=== PATIENT | female | born 1950 | race Caucasian/White ===

== ENCOUNTER → 2018-04-25 | Outpatient (CLI) | payer MEDICARE, OTHER | LOC: LAB.O 08:39 | PROVIDERS: ATTEND Internal Medicine Endocrinology, Diabetes & Metabolism | DX: E11.29 Type 2 diabetes mellitus with other diabetic kidney complication (principal); E11.39 Type 2 diabetes mellitus with other diabetic ophthalmic complication; E11.49 Type 2 diabetes mellitus with other diabetic neurological complication; E11.65 Type 2 diabetes mellitus with hyperglycemia; Z79.4 Long term (current) use of insulin ==

== ENCOUNTER → 2018-07-30 | Outpatient (CLI) | payer OTHER | LOC: GMAM 15:18 | PROVIDERS: ATTEND Family Medicine | DX: R23.3 Spontaneous ecchymoses (principal) ==

== ENCOUNTER → 2018-08-01 | Outpatient (CLI) | payer OTHER ==
--- NOTE | 2018-08-01 14:43 | MRI ---
EXAM DESCRIPTION: Brain w/o Contrast: MRI. CLINICAL HISTORY: VERTIGO COMPARISON: None. TECHNIQUE: Multiplanar, high-field MRI unit, multiple diffusion sequences, multiple conventional sequences without contrast. FINDINGS: Normal FLAIR and T2-weighted signal in the periventricular white matter and pimentel-white matter junctions of the cerebral hemispheres. . No hemorrhage, no cerebral edema, no mass-effect. No diffusion restriction. Focal bright T2 signal in the right thalamus which is intermediate to low signal on other sequences but also bright on the ADC map. This is most likely a cyst. Normal signal in the bilateral basal ganglia. Normal signal in the brainstem and cerebellar hemispheres. No hemorrhage, no cerebral edema, no mass-effect. Concordance of the diffusion and non-diffusion sequences with no diffusion restriction. Cortical sulci, ventricles, and other CSF spaces, and the subdural spaces are normally configured. No effacement or displacement. No midline shift. No extra-axial hemorrhage. Normal flow signal void in the major vessels of the [place], and the venous sinuses. IACs are symmetric bilaterally. Normal signal in the bilateral mastoid air cells. No mass effect in the bilateral cerebellopontine angles. Pituitary gland occupies the base of the sella. Mostly CSF signal in the sella. Base of the cerebellar tonsils is at the level of the foramen magnum. Scattered regions of focal mucoperiosteal thickening sinuses. No air-fluid levels.. The bony calvarium is intact. IMPRESSION: 1. No abnormal white matter or pimentel matter signal. No intra-axial extra-axial hemorrhage. No mass effect, no midline shift. Other variations in the pimentel and white matter signal are related to aging. 2. Normal noncontrast MRI diffusion study with no evidence of diffusion restriction, acute or subacute infarction. 3. Pituitary in the bottom of the sella which contains mostly CSF. 4. Mild paranasal chronic sinusitis. Electronically signed by: Cecilio Perez MD 08/01/2018 2:42 PM [facility]
== END ==
LOC: MRI 09:08
PROVIDERS: ATTEND Family Medicine
DX: R42 Dizziness and giddiness (principal); J32.9 Chronic sinusitis, unspecified

== ENCOUNTER → 2018-08-23 | Outpatient (CLI) | payer OTHER ==
--- NOTE | 2018-08-23 16:30 | US ---
EXAM DESCRIPTION: Extremity,Lower RT Arteries: Ultrasound. CLINICAL HISTORY: I73.9 COMPARISON: None. TECHNIQUE: Doppler evaluation of the bilateral lower extremity arterial flow waveforms and velocities. FINDINGS: Arterial waveforms in the right lower extremity are biphasic from the proximal right common femoral artery to the mid right DPA. Decreased waveform right DPA.. Comments: Decreased waveform right DPA. This could be due to significant atherosclerotic occlusive disease in the right LAZARO. Elevated velocity in the right W[employer] UP O[employer]ATOR may be due to a proximal narrowing IMPRESSION: Findings suggest significant atherosclerotic occlusive disease in the right LAZARO and right WIND UP OPERATOR. Consider follow-up CTA of the lower extremities. Electronically signed by: Cecilio Perez MD 08/23/2018 4:27 PM [facility]
--- NOTE | 2018-08-23 16:34 | US ---
EXAM DESCRIPTION: Carotid Duplex: ULTRASOUND. CLINICAL HISTORY: 68 years Female I65.23 COMPARISON: Duplex ultrasound evaluation of the right lower extremity arterial system on this visit as well as thyroid ultrasound. TECHNIQUE: Transcutaneous scanning utilizing pimentel-scale and Doppler modes to evaluate the bilateral carotid systems and vertebral arteries. Percentage of diameter of stenosis or no stenosis recorded will be based upon NASCET criteria. FINDINGS: Peak systolic/end diastolic (CM-Sec) CCA Right 84/16 Left 81/17. ICA Right proximal 61/23, distal 94/31. Left proximal 113/33, mid 104/29. Vertebral Right 60/19 Left 56/18. ECA (PS Only) Right 105 left 93. ICA/CCA peak systolic ratio: Right 1.1 Left 2.0 ICA/CCA end diastolic ratio: Right 1.4 Left 2.0 Vertebral arteries: antegrade flow. Comments: Atherosclerotic calcification and spectral broadening in the proximal right ICA. Also color turbulent flow. No significant narrowing. Area stenosis in the proximal left ICA 39%. Diameter stenosis 25%.. IMPRESSION: 1. Doppler evaluation of the bilateral carotid systems and vertebral arteries shows no hemodynamically significant stenoses. 2. No significant amount of plaque seen in the carotid arteries bilaterally. Bilateral vertebral arteries showed antegrade-cephalad flow. Electronically signed by: Cecilio Perez MD 08/23/2018 4:30 PM [employer]
--- NOTE | 2018-08-23 16:40 | US ---
US THYROID CLINICAL STATEMENT: E04.1.. No palpable mass. No previous history of thyroid surgery or medical therapy. COMPARISON: Ultrasound of the bilateral carotid vertebral systems, and Doppler ultrasound of the right lower extremity arterial system today. FINDINGS: Size right thyroid lobe: 5.3 x 2.4 x 2.3 cm Size left thyroid lobe: 5.2 x 2.2 x 1.7 cm Size isthmus: 0.4 cm Estimated total number of nodules greater than or equal to 1 cm: 2 . The gland is heterogeneous. No cysts were seen. Vascularity unremarkable. Nodule 1: Size: 1.4 x 1.2 x 0.6 cm Location: Right Lower Composition: solid or almost completely solid: 2 points Echogenicity: hyperechoic: 1 point Shape: wider than tall: 0 points Margins: smooth: 0 points Echogenic foci: none: 0 points ACR Total Points: 3; ACR TI-RADS risk category: TR3 - mildly suspicious nodule. Nodule 2: Size: 1.0 x 0.8 x 0.7 cm Location: Isthmus Mid Composition: solid or almost completely solid: 2 points Echogenicity: very hypoechoic: 3 points Shape: wider than tall: 0 points Margins: smooth: 0 points Echogenic foci: none: 0 points ACR Total Points: 5; ACR TI-RADS risk category: TR4 - moderately suspicious nodule. The soft tissues around the thyroid gland show no evidence of soft tissue mass or distinct cyst. No parenchymal edema or large calcifications. No overlying skin changes. Normal vascularity. IMPRESSION: 1. Nodule 1: ACR TI-RADS 2017 Category TR4. Recommend: Follow-up ultrasound in 1 year.. Recommendations based upon [facility] Best [facility] recommendations and ACR TI-RADS 2017 guidelines. Please see below*. 2. Nodule 2: ACR TI-RADS 2017 Category TR3. Recommend: Follow-up ultrasound in 1 year. 3. Soft tissue around the thyroid gland is unremarkable. *ACR TI-RADS 2017 Recommendations: TR1: No FNA or follow up TR2: No FNA or follow up TR3: FNA if >/= 2.5 cm, follow up if 1.5 - 2.4 cm in 1, 3, and 5 years TR4: FNA if >/= 1.5 cm, follow up if 1.0 - 1.4 cm in 1, 2, 3, and 5 years TR5: FNA if >/= 1.0 cm, follow up if 0.5 - 0.9 cm every year for 5 years ACR TI-RADS recommends that no more than two nodules with the highest ACR TI-RADS total point should be biopsied and no more than four nodules should be followed. These recommendations do not apply to patients with increased risk for thyroid cancer or patients with symptomatic thyroid disease. Electronically signed by: Cecilio Perez MD 08/23/2018 4:37 PM [facility]
== END ==
LOC: US 09:54
PROVIDERS: ATTEND Family Medicine
DX: I73.9 Peripheral vascular disease, unspecified (principal); I65.23 Occlusion and stenosis of bilateral carotid arteries; E04.1 Nontoxic single thyroid nodule

== ENCOUNTER → 2018-11-02 | Outpatient (CLI) | payer OTHER | LOC: GMAM 10:49 | PROVIDERS: ATTEND Family Medicine | DX: E11.9 Type 2 diabetes mellitus without complications (principal); E03.9 Hypothyroidism, unspecified; E55.9 Vitamin D deficiency, unspecified ==

== ENCOUNTER → 2019-01-30 | Outpatient (CLI) | payer OTHER | LOC: GMAM 11:09 | PROVIDERS: ATTEND Family Medicine | DX: Z01.818 Encounter for other preprocedural examination (principal); E03.9 Hypothyroidism, unspecified; E55.9 Vitamin D deficiency, unspecified; E11.9 Type 2 diabetes mellitus without complications; E78.2 Mixed hyperlipidemia; D53.9 Nutritional anemia, unspecified ==

== ENCOUNTER → 2019-02-05 | Outpatient (CLI) | payer OTHER | LOC: GMAM 14:15 | PROVIDERS: ATTEND Family Medicine | DX: R80.9 Proteinuria, unspecified (principal) ==

== ENCOUNTER → 2019-02-15 | Outpatient (CLI) | payer OTHER | LOC: GMAM 14:09 | PROVIDERS: ATTEND Family Medicine | DX: D53.9 Nutritional anemia, unspecified (principal); D72.829 Elevated white blood cell count, unspecified; J44.9 Chronic obstructive pulmonary disease, unspecified ==

== ENCOUNTER → 2019-06-04 | Outpatient (CLI) | payer OTHER | LOC: GMAM 16:47 | PROVIDERS: ATTEND Family Medicine | DX: D50.8 Other iron deficiency anemias (principal); D47.2 Monoclonal gammopathy ==

== ENCOUNTER → 2019-07-15 | Outpatient (CLI) | payer OTHER | LOC: GMAM 14:35 | PROVIDERS: ATTEND Family Medicine | DX: D50.9 Iron deficiency anemia, unspecified (principal); E11.9 Type 2 diabetes mellitus without complications; R10.11 Right upper quadrant pain ==

== ENCOUNTER → 2019-09-12 | Outpatient (CLI) | payer OTHER | DX: Z01.818 Encounter for other preprocedural examination (principal) ==

== ENCOUNTER → 2019-11-04 | Outpatient (CLI) | payer OTHER ==
--- NOTE | 2019-11-04 11:30 | RAD ---
EXAM DESCRIPTION: Hand,Left 3 Views CLINICAL HISTORY: PAIN COMPARISON: None. 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 The changes are most pronounced in the third digit. No fracture is detected. IMPRESSION: Degenerative changes are observed most pronounced in the third digit. Electronically signed by: Lloyd Oropeza MD 11/04/2019 11:28 AM CDT
== END ==
LOC: RAD 10:49
PROVIDERS: ATTEND Orthopaedic Surgery
DX: M19.042 Primary osteoarthritis, left hand (principal)

== ENCOUNTER 2019-11-05 06:00 | Day surgery (SDC) | payer OTHER ==
[2019-11-05] MEDS ORDERED: LIDOCAINE 1% 10 ML VIAL INJ ONE ×2 (06:01→06:38)
[2019-11-05] MEDS ORDERED: PROPOFOL 200 MG/20 ML VIAL IV ONE (06:01)
[2019-11-05] MEDS ORDERED: LACTATED RINGERS 1,000 ML ONE (06:22)
[2019-11-05] MEDS ORDERED: SODIUM CHL 0.9% 100ML MINI-BAG 100 ML IVPB ONE (06:22)
[2019-11-05] MEDS ORDERED: ceFAZolin SODIUM 1 GM VIAL ONE ×2 (06:22→06:38)
[2019-11-05] MEDS ORDERED: BUPIVACAINE 0.25% INJ 30 ML VIAL INJ ONE (06:38)
[2019-11-05] MEDS ORDERED: VANCOMYCIN HCL INJ 1,000 MG VIAL IVPB ONE (06:38)
[2019-11-05 10:21] VITALS: BP 149/69; TEMP 98.5; O2SAT 90
--- NOTE | 2019-11-06 08:15 | OP ---
DATE OF PROCEDURE: 11/05/19 PREOPERATIVE DIAGNOSIS: 1. Left carpal tunnel syndrome. POSTOPERATIVE DIAGNOSIS: 1. Left carpal tunnel syndrome. PROCEDURE: 1. Left carpal tunnel release. SURGEON: Kyler Armenta MD. FLOWERS SALESPERSON: Cecilio Smith CST, SA-C. ANESTHESIA: Local with sedation. COMPLICATIONS: None. FINDINGS: Thickening of the transverse carpal ligament and narrowing of the median nerve across the carpal tunnel. INDICATION: Leah has a long history of symptoms consistent with carpal tunnel syndrome. Because of her ongoing symptoms and failure of conservative measures, she has requested operative intervention. After discussing the risks, benefits and alternatives to that, the patient has given informed consent for carpal tunnel release. PROCEDURE: The patient was brought to the Operating Room and placed in the supine position. Sedation was administered and local anesthetic was injected into the operative area under sterile conditions. After the injection of anesthetic, the arm was sterilely prepped and draped. A longitudinal incision was made directly overlying the transverse carpal ligament and blunt dissection was carried down to the ligament. The transverse carpal ligament was sharply transected along its length and a [place] elevator was used to ensure complete release of the ligament. Once release had been confirmed, the wound was thoroughly irrigated and the wound was closed with Nylon suture. A sterile dressing was placed and the patient was taken to the Day Surgery Unit. POSTOPERATIVE PLAN: The patient has been encouraged to do range of motion of the digits and will followup with us in approximately two days. #[id number] MTDD
== END 2019-11-05 09:40 | disposition home or self-care (01) ==
LOC: AMB 06:00
PROVIDERS: ATTEND Orthopaedic Surgery
DX: G56.02 Carpal tunnel syndrome, left upper limb (principal); E11.9 Type 2 diabetes mellitus without complications; J45.909 Unspecified asthma, uncomplicated; E07.9 Disorder of thyroid, unspecified; N28.9 Disorder of kidney and ureter, unspecified; Z79.4 Long term (current) use of insulin; Z79.899 Other long term (current) drug therapy; Z88.5 Allergy status to narcotic agent; Z88.2 Allergy status to sulfonamides; M19.90 Unspecified osteoarthritis, unspecified site
CPT/HCPCS: 01810; 36416; 64721; 80307; 82948; J0690; J3370; J3490; J7050; J7120

== ENCOUNTER → 2019-11-14 | Outpatient (CLI) | payer OTHER ==
--- NOTE | 2019-11-15 07:55 | CT ---
EXAM DESCRIPTION: Abdoment/Pelvis w/o Contrast CLINICAL HISTORY: 69 years, Female, RLQ PAIN COMPARISON: None. TECHNIQUE: CT of the abdomen and pelvis is performed without IV contrast. Oral contrast was given. Multiplanar reconstructions were obtained. FINDINGS: Partially limited evaluation without intravenous contrast. Nodular streaky opacity within the right lung base favored to represent round atelectasis. Few punctate calcified pulmonary granulomas.. The Liver, spleen, and pancreas are unremarkable. The gallbladder is surgically absent. The kidneys are normal in contour without hydronephrosis, nephrolithiasis, or perinephric fluid collection. The ureters are normal in caliber without obstructing stone. Oral contrast reaches the proximal small bowel. Circumferential irregular colonic wall thickening involving the cecum measure at least 7.6 cm in length with moderate luminal narrowing but without high-grade bowel obstruction. There are prominent lymph nodes within the adjacent pericolonic fat measuring up to 2.2 cm. The appendix is not clearly visualized, however there are no signs of acute appendicitis. No free fluid within the pelvis. The uterus is unremarkable. Approximately 1.8 cm fat attenuation (-54 Hounsfield units) lesion is present within the right adnexa consistent with a dermoid. The partially distended bladder is normal in appearance. Multilevel posterior lumbar spine interbody fusion. A 1.1 cm hyperdense (approximately 960 Hounsfield units) lobular lesion within the thecal sac at the T10 level causes severe canal narrowing. Lower sacrum chronic cortical irregularity/posttraumatic remodeling. Dorsal spinal stimulator leads are present. IMPRESSION: Partially limited evaluation without intravenous contrast. 1. Large irregular wall thickening involving the cecum with adjacent enlarged lymph nodes. The overall appearance favors a primary cecal mass with adjacent local carli metastasis, less likely a focal chronic inflammatory process. Correlation with direct visualization and tissue sampling should be considered. 2. No high-grade bowel obstruction. 3. 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 4. A 1.1 cm hyperdense lesion within the spinal canal at the T10 level may represent an area of extravasated cement or bone grafting resulting in central canal stenosis at this level. 5. Right lung base appearance of round atelectasis. This exam was performed according to our departmental dose-optimization program, which includes automated exposure control, adjustment of the mA and/or kV according to patient size and/or use of iterative reconstruction technique. Electronically signed by: Len Mccurdy DO 11/15/2019 7:53 AM CDT
== END ==
LOC: CT 11:04
DX: K63.89 Other specified diseases of intestine (principal); R59.9 Enlarged lymph nodes, unspecified; R19.4 Change in bowel habit; D27.1 Benign neoplasm of left ovary; G95.9 Disease of spinal cord, unspecified; J98.11 Atelectasis

== ENCOUNTER → 2019-12-02 | Outpatient (CLI) | payer OTHER | LOC: GMAM 16:58 | PROVIDERS: ATTEND Family Medicine | DX: E03.9 Hypothyroidism, unspecified (principal); E11.9 Type 2 diabetes mellitus without complications ==

== ENCOUNTER → 2020-06-02 | Outpatient (CLI) | payer OTHER | LOC: GMAM 10:56 | PROVIDERS: ATTEND Family Medicine | DX: D52.9 Folate deficiency anemia, unspecified (principal); D50.9 Iron deficiency anemia, unspecified; E55.9 Vitamin D deficiency, unspecified; E03.9 Hypothyroidism, unspecified; E78.2 Mixed hyperlipidemia; E11.59 Type 2 diabetes mellitus with other circulatory complications ==

== ENCOUNTER → 2020-06-12 | Outpatient (CLI) | payer OTHER ==
--- NOTE | 2020-06-14 16:15 | CT ---
Procedure: CT LUNG SCREENING Exam Date: June 12, 2020. Ordering Provider: Levi Garcia MD Clinical Indication: TOBACCO USE smoking cessation x12 years. 25 pack-year history. This patient meets eligibility criteria for low-dose CT lung cancer screening. Comparison: CT scan abdomen November 14, 2019. Technique: Using a multislice scanner, sequential helical axial imaging was obtained in the thorax, 2.5 mm thickness, 2.5 mm separation, from the level of the thoracic inlet through the lung bases without IV contrast. A low dose protocol was utilized for BMI greater than 30: BMI: 48. CTDI: 2.93 mGy. 120. kVp. 75 mA. DLP 1279 mGy-cm. 2D sagittal and coronal reconstructed images, 6.0 mm thickness, were obtained. This exam was performed according to our departmental dose optimization program which includes use of automated exposure control, adjustment of the mA and/or kV according to patient size and/or use of iterative reconstruction technique. Nodule measurements under 10 mm are given as mean value of 3 axes diameters. FINDINGS: Lungs and large airways: Relatively well-circumscribed subpleural mass abutting the posterior pleura on the right hemidiaphragm posteriorly in the right lower lobe measuring 3.2 x 2.1 cm abutting the base of the right major fissure with superior air bronchograms and posteriorly and inferiorly widening of the base of this density. Craniocaudal dimension is 1.1 cm. This is stable since the prior abdominal CT scan. Pleural parenchymal scarring in the bilateral lung bases stable. Also scarring in the inferior right middle lobe. Bilateral small blebs in a centrilobular pattern predominantly upper lung cota stable. 2 mm subpleural nodule lateral base of the right lower. 2 mm calcification subpleural lateral right middle lobe. 3 mm groundglass nodule subpleural posterior right apex. Subpleural groundglass nodules in the left apex less than 3 mm diameter. Subpleural left hemidiaphragm 2 mm calcified nodule in the lingula. Stable 3 mm calcified subpleural nodule medial superior segment right upper lobe. No new abnormal nodule or mass. No acute infiltrate. Pleura and space: Minimal thickening but no acute process. Mediastinum and ector: evaluation limited by low dose technique and lack of IV contrast. Largest azygous space lymph node is 10 x 12 mm in the azygos region with a benign appearance. No dominant soft tissue mass or large calcifications.. Heart and great vessels: Multiple calcifications coronary arteries. Atherosclerotic calcifications aorta and several brachiocephalic vessels. Chest wall, lower neck, axillae: Evaluation also limited by same factors as described above. Axillary nodes no soft tissue mass. Upper abdomen: Evaluation limited by low-dose technique. No free air or free fluid. Vascular calcifications. Surgical clips gallbladder fossa with no fluid. Splenules. Partial visualization of other organs. Osseous structures: Evaluation limited by low dose MIP technique. Spondylosis at multiple levels of the thoracic spine. Sternoclavicular arthrosis and bilateral glenohumeral joint arthrosis. ACDF C6 and C7. Calcified nodule occupying most of the spinal canal at the T10 level. Stable since the prior study. IMPRESSION: No new abnormal nodule. Chronic densities bilaterally. Chronic scarring or subsegmental atelectasis right lower lobe is masslike and measuring up to 3 cm. This mass is stable since the prior study. Bilateral calcified granulomas. Stable calcified mass in the spinal canal at T10 which is probably displacing or compressing the spinal cord. Also present on prior CT scan of the abdomen November 2019. [facility] Best Practice Recommendations: please see below for Lung RADS category and FOLLOW-UP.* *Lung RADS category CATEGORY 2- Nodules with a very low likelihood (less than 1%) of becoming a clinically active cancer due to size or lack of growth. Nodules: Perifissural nodule(s) < 10 mm. (526mm3). Solid or part solid nodule(s) less than 6mm (113.1 mm3), new solid nodule less than 4mm (33.5 mm3). Ground glass nodule(s) less than 30mm (45386.2 mm3) or unchanged or slow growing ground glass nodule 30mm or greater. Cat 3 or 4 nodule unchanged for 3 or more months. FOLLOW-UP: Continue annual screening with a Low Dose Chest CT in 12 months for re-evaluation. Electronically signed by: Cecilio Perez MD 06/14/2020 4:13 PM [facility]
== END ==
LOC: CT 10:55
PROVIDERS: ATTEND Family Medicine
DX: Z12.2 Encounter for screening for malignant neoplasm of respiratory organs (principal); R91.8 Other nonspecific abnormal finding of lung field; Z87.891 Personal history of nicotine dependence; G95.9 Disease of spinal cord, unspecified

== ENCOUNTER → 2020-06-29 | Outpatient (CLI) | payer MEDICARE | LOC: LAB.O 10:06 | PROVIDERS: ATTEND Nurse Practitioner Family | DX: D50.8 Other iron deficiency anemias (principal); D47.2 Monoclonal gammopathy; D53.9 Nutritional anemia, unspecified; D64.9 Anemia, unspecified; D72.829 Elevated white blood cell count, unspecified ==

== ENCOUNTER → 2020-07-01 | Outpatient (CLI) | payer MEDICARE ==
[~2020-07-01] MED LIST: ACETAMINOPHEN 325 MG TAB PO SCH; FAMOTIDINE IV PREMIX 20 MG in PREMIX BAG 1 BAG IVPB SCH; IRON DEXTRAN IVPB SCH; SODIUM CHLORIDE 0.9% IVPB SCH
[2020-07-01 10:37] VITALS: BP 138/79; TEMP 98.5; O2SAT 99
== END ==
LOC: INFRM 08:53
PROVIDERS: ATTEND Internal Medicine Hematology & Oncology
DX: D50.9 Iron deficiency anemia, unspecified (principal)
CPT/HCPCS: 96365; 96366; 96367; J1750; J3490; J7050

== ENCOUNTER → 2020-07-07 | Outpatient (CLI) | payer MEDICARE ==
[~2020-07-07] MED LIST changes: +ACETAMINOPHEN 325 MG TAB PO ONE; -ACETAMINOPHEN 325 MG TAB PO SCH; +FAMOTIDINE IV PREMIX 20 MG in PREMIX BAG 1 BAG IVPB ONE; -FAMOTIDINE IV PREMIX 20 MG in PREMIX BAG 1 BAG IVPB SCH; +FAMOTIDINE IV PREMIX 50 ML IVPB ONE; +IRON DEXTRAN 500 MG in SODIUM CHLORIDE 0.9% 500ML 500 ML IVPB ONE; -IRON DEXTRAN IVPB SCH; -SODIUM CHLORIDE 0.9% IVPB SCH
== END ==
LOC: INFRM 09:15
PROVIDERS: ATTEND Internal Medicine Hematology & Oncology
DX: D50.9 Iron deficiency anemia, unspecified (principal)
CPT/HCPCS: 96365; 96366; 96368; J3490